=== PATIENT | male | born 1990 ===

== ENCOUNTER 2020-11-21 13:58 | Outpatient (CLI) | payer OTHER | END 2020-11-21 14:00 | disposition home or self-care (01) | LOC: PPH VACUNA 13:58 | DX: Z23 Encounter for immunization (principal) ==

== ENCOUNTER 2021-05-25 14:18 | Outpatient (CLI) | payer OTHER | END 2021-05-25 14:21 | disposition home or self-care (01) | LOC: PPH VACUNA 14:18 | PROVIDERS: ATTEND Emergency Medicine Pediatric Emergency Medicine | DX: Z23 Encounter for immunization (principal) ==